=== PATIENT | male | born 2005 | race Caucasian/White ===

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

== ENCOUNTER 2024-10-18 10:50 | Outpatient (REF) | payer OTHER, SELFPAY ==
--- NOTE | ~2024-10-18 | XR_ITS ---
EXAMINATION: XR HAND 3 OR MORE VIEWS RIGHT HISTORY: M79.641 - Pain in right hand COMPARISON: There are no prior studies available for comparison. FINDINGS: Three views of the right hand are submitted. Osseous mineralization is normal. There is no fracture or dislocation. The joint spaces are preserved. The soft tissues are unremarkable. XR/XR hand RT min 3V IMPRESSION: Unremarkable examination of the right hand. Electronically signed by: Sam Weaver MD 10/18/2024 01:57 PM EDT
--- OUTSIDE RECORDS SUMMARY | 2024-10-19 13:02 | XMS_ITS | Encounter Summary ---
Author Organization [facility] Address [address] [place] [address] Phone Care Team Providers Care Coal Trammer Name Role Phone [place] Méndez MD Primary Care Provider [phone] Reason for Visit * Reason Comments Med Refill Encounter Details Date Type Department Care Team (Late st Contact Info) Description 11/28/2018 Refill [facility] - [address] [address] Kyle Mena MD Other acne Social History [...] acne documented in this encounter Care Teams Coal Trammer Relationship Specialty Start Date End Date [place] Méndez MD [address] [place] [address] [place]GEL[place] Vann [address] PCP - General Pediatrics 11/30/20 documented as of this encounter
--- OUTSIDE RECORDS SUMMARY | 2024-10-19 13:02 | XMS_ITS | Encounter Summary ---
Author Organization [facility] Address [address] [place] [address] Phone Care Team Providers Care Rug Scratcher Name Role Phone [place] Méndez MD Primary Care Provider [phone] Reason for Visit * Reason Comments Med Refill Encounter Details Date Type Department Care Team (Late st Contact Info) Description 01/05/2020 Refill [facility] [place] [address] [place] [address] Kyle Ocampo MD [address] [place] [address] Anxiety Social History Tobacco Use Types Packs/Day [...] unspecified documented in this encounter Care Teams Rug Scratcher Relationship Specialty Start Date End Date [place] Méndez MD [address] [place] [address] [place] Vann [address] PCP - General Pediatrics 11/30/20 documented as of this encounter
--- OUTSIDE RECORDS SUMMARY | 2024-10-19 13:02 | XMS_ITS | Encounter Summary ---
Author Organization [facility] Address [address] [place] [address] Phone Care Team Providers Care Sequins Stringer Name Role Phone [place] Méndez MD Primary Care Provider [phone] Encounter Details Date Type Department Care Team (Late st Contact Info) Description 12/04/2016 Documentation [facility] [place] Family Medicine [address] [place] [address] Family Medicine, Physician [address] [place] [place], [place] [address] Social History Tobacco Use Types Packs/Day Years [...] on filedocumented in this encounter Care Teams Sequins Stringer Relationship Specialty Start Date End Date [place] Méndez MD [address] [place] [address] [place] [address] PCP - General Pediatrics 11/30/20 documented as of this encounter
--- OUTSIDE RECORDS SUMMARY | 2024-10-19 13:02 | XMS_ITS | Clinical Summary ---
Author Organization [facility] Address [address] [place], [place] [phone] Phone Care Team Providers Care Care Connector Name Role Phone [place] Méndez MD Primary Care Provider [phone] Allergies No known active allergies Medications FLUoxetine [...] transferred to psychiatrist, Dr. Rolf Herrera in [place], as of 01/18/2021. Resolved Problems Problem Noted [...] Due Date Last Done Comments COVID-19 Vaccine (2023-2 5 season) 2024 2021, 01/09/2021 DTaP,Tdap,and Td [...] Completed 06/09/2024, 08/04/2022, 05/22/2022, Additional history exists Procedures * Due to [place] state law, this organization might not be sharing sensitive test results. Procedure Name Priority Date/Time Associated Diagnosis Comments AMB REFERRAL TO ORTHOPEDIC SURGERY Routine 10/18/2024 1:37 PM EDT Closed torus fracture of distal end of right radius, initial encounter from Last 3 Months Results * Due to [place] state law, this organization might not be sharing sensitive test results. * Ambulatory referral to Orthopedic Surgery (10/18/2024 1:37 PM EDT) Kyle Mena MD OUTPATIENT REFERRAL ORDERABLES F inal Result from Last 3 Months Insurance [facility] [place] [id number] Care Teams Care Connector Relationship Specialty Start Date End Date [place] Méndez MD [address] [place] [address] [place] Vann [address] PCP - General Pediatrics 11/30/20
--- OUTSIDE RECORDS SUMMARY | 2024-10-19 13:02 | XMS_ITS | Encounter Summary ---
Author Organization [facility] Address [address] [place] [address] Phone Care Team Providers Care Tamper Operator Name Role Phone [place] Méndez MD Primary Care Provider [phone] Encounter Details Date Type Department Care Team (Late st Contact Info) Description 01/04/2013 Documentation [facility] [place] [address] [place] [address] Family Medicine, Physician [address] [place], [place] [address] Social History Tobacco Use Types Packs/Day Years [...] on filedocumented in this encounter Care Teams Tamper Operator Relationship Specialty Start Date End Date [place] Méndez MD [address] [place] [address] [place] [address] PCP - General Pediatrics 11/30/20 documented as of this encounter
--- OUTSIDE RECORDS SUMMARY | 2024-10-19 13:02 | XMS_ITS | Encounter Summary ---
Author Organization [facility] Address [address] [place] [address] Phone Care Team Providers Care Parcel Post Order Clerk Name Role Phone [place] Méndez MD Primary Care Provider [phone] Reason for Visit * Reason Comments Med Refill Encounter Details Date Type Department Care Team (Late st Contact Info) Description 11/16/2019 Refill [facility] [place] [address] [place] [address] Kyle Pickard MD [address] [place] [address] Anxiety Social History Tobacco Use Types Packs/Day [...] unspecified documented in this encounter Care Teams Parcel Post Order Clerk Relationship Specialty Start Date End Date [place] Méndez MD [address] [place] [address] [place] Vann [address] PCP - General Pediatrics 11/30/20 documented as of this encounter
--- OUTSIDE RECORDS SUMMARY | 2024-10-19 13:02 | XMS_ITS | Encounter Summary ---
Author Organization [facility] Address [address] [place] [address] Phone Care Team Providers Care Cancer Center Director Name Role Phone [place] Méndez MD Primary Care Provider [phone] Encounter Details Date Type Department Care Team (Late st Contact Info) Description 12/30/2016 Documentation [facility] [place] [address] [place] [address] Family Medicine, Physician [address] [place], [place] [phone] Social History Tobacco Use Types Packs/Day Years [...] on filedocumented in this encounter Care Teams Cancer Center Director Relationship Specialty Start Date End Date Eagle Ménedz MD [address] [place] [address] [place] [address] PCP - General Pediatrics 11/30/20 documented as of this encounter
--- OUTSIDE RECORDS SUMMARY | 2024-10-19 13:02 | XMS_ITS | Encounter Summary ---
Author Organization [facility] Address [address] [place], [place] [phone] Phone Care Team Providers Care Suspension Cord Tier Name Role Phone [place] Méndez MD Primary Care Provider [phone] Encounter Details Date Type Department Care Team (Late st Contact Info) Description 03/05/2017 Conversion Encounter [facility] [place] [address] [place] [address] Social History Tobacco Use Types Packs/Day Years [...] on filedocumented in this encounter Care Teams Suspension Cord Tier Relationship Specialty Start Date End Date [place] Méndez MD [address] [place] [address] PCP - General Pediatrics 11/30/20 documented as of this encounter
--- OUTSIDE RECORDS SUMMARY | 2024-10-19 13:02 | XMS_ITS | Encounter Summary ---
Author Organization [facility] Address [address] [place] [address] Phone Care Team Providers Care Workforce Development Vice President Name Role Phone [place] Méndez MD Primary Care Provider [phone] Reason for Visit * Reason Comments Med Refill Encounter Details Date Type Department Care Team (Late st Contact Info) Description 03/01/2019 Refill [facility] - [address] [address] Kyle Mena MD Other acne Social History [...] acne documented in this encounter Care Teams Workforce Development Vice President Relationship Specialty Start Date End Date [place] Méndez MD [address] [facility] [place]ann [address] PCP - General Pediatrics 11/30/20 documented as of this encounter
--- OUTSIDE RECORDS SUMMARY | 2024-10-19 13:02 | XMS_ITS | Encounter Summary ---
Author Organization [facility] Address [address] [place] [address] Phone Care Team Providers Care Junior Account Manager Name Role Phone [place] Méndez MD Primary Care Provider [phone] Encounter Details Date Type Department Care Team (Late st Contact Info) Description 02/04/2016 Documentation [facility] [place] Family Medicine [address] [place] [address] Family Medicine, Physician [address] [place], [place] [address] Social History Tobacco Use Types Packs/Day Years [...] on filedocumented in this encounter Care Teams Junior Account Manager Relationship Specialty Start Date End Date [place] Méndez MD [address] [place] [address] [place] [address] PCP - General Pediatrics 11/30/20 documented as of this encounter
--- OUTSIDE RECORDS SUMMARY | 2024-10-19 13:02 | XMS_ITS | Encounter Summary ---
Author Organization [facility] Address [address] [place] [address] Phone Care Team Providers Care Enlisted Advisor Name Role Phone [place] Méndez MD Primary Care Provider Encounter Details Date Type Department Care Team (Late st Contact Info) Description 12/07/2009 Documentation [facility] [place] Family Medicine [address] [place] [address] Family Medicine, Physician [address] [place], [place] [id number] Social History Tobacco Use Types Packs/Day Years [...] on filedocumented in this encounter Care Teams Enlisted Advisor Relationship Specialty Start Date End Date [place] Méndez MD [address] [place] [address] [place] [address] PCP - General Pediatrics 11/30/20 documented as of this encounter
== END 2024-10-18 10:51 | disposition home or self-care (01) ==
LOC: HO.HOSX 10:50
PROVIDERS: Visit Provider Orthopaedic Surgery
DX: M79.641 Pain in right hand (principal); M65.4 Radial styloid tenosynovitis [de Quervain]
CPT/HCPCS: 20550; 73130; J1100; J2003

== ENCOUNTER → 2024-10-18 11:00 | Outpatient (BNV) | payer OTHER, SELFPAY | PROVIDERS: Visit Provider Radiology Diagnostic Radiology | DX: M79.641 Pain in right hand (principal) | CPT/HCPCS: 73130 ==

== ENCOUNTER 2024-10-18 11:04 | Outpatient (AMB) | payer OTHER, SELFPAY ==
--- NOTE | 2024-10-18 11:22 | A.OFFVIS_ITS ---
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 States pain started in May. No injury he can recall. Pain is at base of his basal joint. Pain with heavy lifting, hold his coffee cup and typing. He has stiffness in thumb, clicking as well. Denies numbness or tingling. States he has tried O.T and wore a brace for about 4 months with no improvement. Allergies No Known Allergies Allergy (Verified 10/18/24 11:28) HPI HPI VOCATIONAL GUIDANCE COUNSELOR-RT thumb pain: Details: Mulugeta is a 19 year old right hand dominant man who complaints of right thumb pain. He complains of pain in his right thumb for ~5 months now. The pain is localized at the base of his thumb & radial wrist. Pain worse with pinching, gripping, or heavy lifting activities. He denies any numbness or tingling He says he found limited relief from OT and wearing a brace. FORMERLY [facility], 1928[facility]1983 Medical History (Updated 10/18/24 @ 11:31 by Santiago Gutierrez) Patient denies significant medical history Surgical History (Updated 10/18/24 @ 11:28 by FARRAH Morillo) History of surgery on arm Social History (Updated 10/18/24 @ 11:29 by FARRAH Morillo) Alcohol intake: never Current occupation: rt hand/ [employer] Review of Systems Const All systems reviewed & are unremarkable except as noted in HPI and below Physical Exam Vital Signs: BMI result Body Mass Index 24.4 Const General: cooperative, healthy appearing and no acute distress Orientation/consciousness: patient oriented x3 HEENT Head: Yes normocephalic and Yes atraumatic Eyes EOM: EOMs intact bilaterally Resp Effort & Inspection: normal respiratory effort and able to speak in complete sentences Cardio Jugular venous distension: no JVD Skin General skin exam: turgor normal Rashes: no rashes Neuro General: patient oriented x3 Extrem Other: Evaluation of Upper Extremity: The patient is alert, oriented, and in no acute distress Neuro: Median, Ulnar, Radial nerves motor and sensory intact and sensation is normal to the tips of all digits Vascular: Cap refill brisk ROM: He can make a fist and extend all his digits No locking or catching Skin: No lacerations or abrasions. General: No Ecchymosis. No Erythema or evidence of infection. Most tender over the 1st dorsal compartment Pos Aisha test on the right No tenderness over the basal joint or MCP joint Radiographs: 3 views of the right hand were taken and viewed by me today in clinic. They show no fractures or dislocations Psych Appearance: grossly normal Affect: normal affect Attitude: cooperative Office Procedures AMB Fracture Care Details: No fracture, injection Fracture Billing Code: Fracture Billing Code Assessment & Plan Assessment & Plan (1) De Quervain's tenosynovitis, right: Code(s): M65.4 - Radial styloid tenosynovitis [de Quervain] Category: Medical Plan Assessment & Plan: 1. Right De Quervain's tenosynovitis Positive Aisha test I educated him about this condition I discussed operative and non-operative treatment options The patient would like to proceed with an injection I discussed activity modification, they should limit or avoid any heavy or repetitive pinching or gripping activities He was fitted for a comfort cool brace to wear with daily activity Injection #1: The risks and benefits of a steroid injection including but not limited to risk of damage to blood vessels, nerves, tendons, infection, skin bleaching, failure to improve symptoms, increased pain, and possible need for further injections or other intervention were discussed with the patient and the patient wishes to proceed with the steroid injection. Once consent was obtained, I sterilely prepped the area over the 1st dorsal compartment of the Right thumb. I then injected the 1st dorsal compartment with a combination of 1 mL of dexamethasone (4mg/ml), and 1% lidocaine. The patient tolerated the procedure well with no complications and good resolution of their symptoms prior to leaving clinic. If the patient continues to have pain 6-8 weeks following this injection, they may call to schedule appointment to discuss alternative treatment options He will follow up prn Scribed for Yoselyn Glynn MD by Santiago Gutierrez, medical office assistant instructor, on 10/18/24 at 11:30 AM, EST. Orders: Orders XR hand RT min 3V Today M79.641 - Pain in right hand Coding Level of Care Code New Pt Level 4 (70186) Diagnoses De Quervain's tenosynovitis, right M65.4 CPT Codes Fracture Care - Fracture Billing Code: Fracture Billing Code ([id number])
[2024-10-18 11:29] VITALS: BMI 24.4
--- OUTSIDE RECORDS SUMMARY | 2024-10-18 13:22 | XMS_ITS | Encounter Summary ---
Author Organization [facility] Address [address] [place] [id number] Phone Care Team Providers Care Eligibility Manager Name Role Phone Eagle Méndez MD Primary Care Provider [phone] Encounter Details Date Type Department Care Team (Late st Contact Info) Description 12/07/2009 Documentation [facility] [place] [address] [place] [address] Family Medicine, Physician [address] [place], [place] [id number] Social History Tobacco Use Types Packs/Day Years Used Date Smoking Tobacco: Never Assessed Sex and Gender Information Value Date Recorded Sex Assigned at Male 09/27/2020 10:39 AM EST Legal Sex Male 5:09 PM EDT Gender Identity Male 09/27/2020 10:39 AM EST Sexual Orientation Straight 09/27/2020 10 :39 AM EST documented as of this encounter Plan of Treatment Not on file documented as of this encounter Visit Diagnoses Not on filedocumented in this encounter Care Teams Eligibility Manager Relationship Specialty Start Date End Date Eagle Méndez MD [address] [place] [address] [place] [address] PCP - General Pediatrics 11/30/20 documented as of this encounter
--- OUTSIDE RECORDS SUMMARY | 2024-10-18 13:22 | XMS_ITS | Encounter Summary ---
Author Organization [facility] Address [address] [place] [address] Phone Care Team Providers Care Education Research Analyst Name Role Phone Eagle Méndez MD Primary Care Provider [phone] Reason for Visit * Reason Comments Med Refill Encounter Details Date Type Department Care Team (Late st Contact Info) Description 11/28/2018 Refill [facility] - [address] [address] Kyle Mena MD Other acne Social History Tobacco Use Types Packs/Day Years Used Date Smoking Tobacco: Never Comments:Never smoker Hunger/Food Answer Date Recorded No 08/04/2018 Stable Housing Answer Date Recorded 0 08/04/2018 Transportation Concerns Answer Date Rec orded No 08/04/2018 Hazards in Home Answer Date Recorded No 08/04/2018 Financing Utilities Answer Date Recorde d No 08/04/2018 Safety at Home Answer Date Recorded No 08/04/2018 Outside Support Answer Date Recorded No 08/04/2018 Understanding Health Concerns Answer Da te Recorded No 08/04/2018 Financing Health Concerns Answer Date R ecorded No 08/04/2018 Missing School or Work Answer Date Oscar rded No 08/04/2018 Sex and Gender Information Value Date Recorded Sex Assigned at Male 09/27/2020 10:39 AM EST Legal Sex Male 5:09 PM EDT Gender Identity Male 09/27/2020 10:39 AM EST Sexual Orientation Straight 09/27/2020 10 :39 AM EST documented as of this encounter Miscellaneous Notes * Telephone Encounter - Kyle Mena MD - 12/02/2018 9:03 PM EDT Per mom pt has been on this only for 1.5 mos She also says hs is on 50 mg bid PLan Will refill Pt will be carful of sun * Telephone Encounter - Parvin Andrea LPN - 11/29/2018 10:21 AM EDT Pharm fax refill request minocyline. This was started 07/28, was to have f/u in 3 mos. Spoke with mom who said she did ask for this, that she feels pt's acne improved while using, that he could be more compliant using daily but do find it is helpful. EH documented in this encounter Plan of Treatment Not on file documented as of this encounter Visit Diagnoses Diagnosis Other acne documented in this encounter Care Teams Education Research Analyst Relationship Specialty Start Date End Date Eagle Méndez MD [address] [place] [address] [place]ann [address] PCP - General Pediatrics 11/30/20 documented as of this encounter
--- OUTSIDE RECORDS SUMMARY | 2024-10-18 13:22 | XMS_ITS | Encounter Summary ---
Author Organization [facility] Address [address] [place] [address] Phone Care Team Providers Care Brewmaster Name Role Phone Eagle Méndez MD Primary Care Provider [phone] Encounter Details Date Type Department Care Team (Late st Contact Info) Description 12/04/2016 [place]ation [facility] [place] [address] [place] [address] Family Medicine, Physician [address] [place], [place] [address] Social History Tobacco Use Types Packs/Day Years Used Date Smoking Tobacco: Never Comments:Never smoker Sex and Gender Information Value Date Recorded Sex Assigned at Male 09/27/2020 10:39 AM EST Legal Sex Male 5:09 PM EDT Gender Identity Male 09/27/2020 10:39 AM EST Sexual Orientation Straight 09/27/2020 10 :39 AM EST documented as of this encounter Plan of Treatment Not on file documented as of this encounter Visit Diagnoses Not on filedocumented in this encounter Care Teams Brewmaster Relationship Specialty Start Date End Date Eagle Méndez MD [address] [place] [address] [place] [address] PCP - General Pediatrics 11/30/20 documented as of this encounter
--- OUTSIDE RECORDS SUMMARY | 2024-10-18 13:22 | XMS_ITS | Encounter Summary ---
Author Organization [facility] Address [address] [place] [address] Phone Care Team Providers Care Heavy Equipment Service Technician Name Role Phone Eagle Méndez MD Primary Care Provider [phone] Reason for Visit * Reason Comments Med Refill Encounter Details Date Type Department Care Team (Late st Contact Info) Description 11/16/2019 Refill [facility] [place] [address] [place] [address] Kyle Pickard MD [address] [place] [address] Anxiety Social History Tobacco Use Types Packs/Day Years Used Date Smoking Tobacco: Never Comments:Never smoker Hunger/Food Answer Date Recorded In the last 12 months, did y ou or your family ever eat less than you felt you should because there wasn't enough money for food? No 09/08/2019 Stable Housing Answer Date Recorded Are you worried that in the next 2 months you may not have stable housing? No 09/08/2019 Transportation Concerns Answer Date Rec orded In the last 12 months, have you or your family ever had to go without healthcare because you didn't have a way to get there? No 09/08/2019 Hazards in Home Answer Date Recorded Think about the place you li ve. Do you have problems with any of the following? Pests (mice or roaches), mold, no/not working smoke detectors, water leaks, no window guards. No 2019 Financing Utilities Answer Date Recorde d In the last 12 months, has t he electric, gas, oil, or water company threatened to shut off your services in your home? No 09/08/2019 Safety at Home Answer Date Recorded Are you or your family worried about feeling saf e in your home? No 09/08/2019 Outside Support Answer Date Recorded Do you feel that you need mo re support from other people or programs to help you care for yourself or your family? No 09/08/2019 Understanding Health Concerns Answer Da te Recorded Do you need help understandi ng your or your child's healthcare needs (diagnosis, medications, plan, etc.)? No 09/08/2019 Financing Health Concerns Answer Date R ecorded In the last 12 months, was t here a time when your child needed to see a doctor or get medications or supplies but could not because of cost? No 09/08/2019 Missing School or Work Answer Date Oscar rded Did you or your child miss s chool or work because of a health problem that could have been avoided? No 09/08/2019 Sex and Gender Information Value Date Recorded Sex Assigned at Male 09/27/2020 10:39 AM EST Legal Sex Male 5:09 PM EDT Gender Identity Male 09/27/2020 10:39 AM EST Sexual Orientation Straight 09/27/2020 10 :39 AM EST documented as of this encounter Miscellaneous Notes * Telephone Encounter - Kyle Mena MD - 11/17/2019 11:17 AM EDT Per mom today, pt does not, yet, need refill. * Telephone Encounter - Urvashi Ellis LPN - 11/16/2019 9:37 AM EDT Needs refill on Fluoxetine 10 mgs. Last pe 09/08 Last med ck 09/2019 Med ck pending tomorrow documented in this encounter Plan of Treatment Not on file documented as of this encounter Visit Diagnoses Diagnosis Anxiety Anxiety state, unspecified documented in this encounter Care Teams Heavy Equipment Service Technician Relationship Specialty Start Date End Date Eagle Méndez MD [address] [place] [address] [place] [address] PCP - General Pediatrics 11/30/20 documented as of this encounter
--- OUTSIDE RECORDS SUMMARY | 2024-10-18 13:22 | XMS_ITS | Encounter Summary ---
Author Organization [facility] Address [address] [place] [address] Phone Care Team Providers Care Red Cap Name Role Phone Eagle Méndez MD Primary Care Provider [phone] Encounter Details Date Type Department Care Team (Late st Contact Info) Description 02/04/2016 Documentation [facility] [place] Family Medicine [address] [place] [address] Family Medicine, Physician [address] [place], [place] [address] Social History Tobacco Use Types Packs/Day Years [...] on filedocumented in this encounter Care Teams Red Cap Relationship Specialty Start Date End Date Eagle Méndez MD [address] [place] [address] [place] [address] PCP - General Pediatrics 11/30/20 documented as of this encounter
--- OUTSIDE RECORDS SUMMARY | 2024-10-18 13:22 | XMS_ITS | Encounter Summary ---
Author Organization [facility] Address [address] [place] [address] Phone Care Team Providers Care Coach Wirer Name Role Phone Eagle Méndez MD Primary Care Provider [phone] Reason for Visit * Reason Comments Med Refill Encounter Details Date Type Department Care Team (Late st Contact Info) Description 03/01/2019 Refill [facility] - [address] [address] Kyle Mena MD Other acne Social History [...] Telephone Encounter - Kyle Mena MD - 03/03/2019 1:03 PM EDT Spoke to pt's brother and father (here for brother's PE) They feel pt does not need refill * Telephone Encounter - Brittany Avila LPN - 03/01/2019 7:38 AM EDT Refill request for /minocycline. Last PE 07/01/18/JOD documented in this encounter Plan of Treatment Not on file documented as of this encounter Visit Diagnoses Diagnosis Other acne documented in this encounter Care Teams Coach Wirer Relationship Specialty Start Date End Date Eagle Méndez MD [address] [facility] [place] [address] PCP - General Pediatrics 11/30/20 documented as of this encounter
--- OUTSIDE RECORDS SUMMARY | 2024-10-18 13:22 | XMS_ITS | Encounter Summary ---
Author Organization [facility] Address [address] [place] [address] Phone Care Team Providers Care Lap Runner Name Role Phone [place] Méndez MD Primary Care Provider [phone] Reason for Visit * Reason Comments Med Refill Encounter Details Date Type Department Care Team (Late st Contact Info) Description 01/05/2020 Refill [facility] [place] [address] [place] [address] Kyle Ocampo MD [address] [place] [address] Anxiety Social History Tobacco Use Types Packs/Day [...] encounter Miscellaneous Notes * Telephone Encounter - Brittany Avila LPN - 01/05/2020 7:56 AM EDT Refill request for fluoxetine refused, just sent on 12/20/19 documented in this encounter Plan of Treatment Not on file documented as of this encounter Visit Diagnoses Diagnosis Anxiety Anxiety state, unspecified documented in this encounter Care Teams Lap Runner Relationship Specialty Start Date End Date Eagle Méndez MD [address] [place] [address] [place]GEL[place] Vann [address] PCP - General Pediatrics 11/30/20 documented as of this encounter
--- OUTSIDE RECORDS SUMMARY | 2024-10-18 13:22 | XMS_ITS | Clinical Summary ---
Author Organization [facility] Address [address] [place], [place] [id number] Phone Care Team Providers Care Cyber Threat Analyst Name Role Phone [place] Méndez MD Primary Care Provider [phone] Allergies No known active allergies Medications FLUoxetine 10 MG capsule Take by mouth once daily. 4 Active triamcinolone 0.1 % creamIndication s:Dermatitis Apply topically 2 (two) times a day as needed for rash (Up to 14 days in a row). 45 g 1 4 Active Active Problems Problem Noted Date Diagnosed Date Attention deficit hyperactiv ity disorder (ADHD), predominantly inattentive type 05/22/2022 History of COVID-19 01/07/2021 Overview (01/07/2021): Positive for COVID-19 in 07/2020 with only mild symptoms at the time. AHA screening negative. Sports clearance performed on 12/21/20. Anxiety 11/17/2019 Overview (01/18/2021): Patient treated through this office with fluoxetine from 08/2019 - 12/2020. Management of Rx treatment transferred to psychiatrist, Dr. Rolf Herrera in [place], as of 01/18/2021. Resolved Problems Problem Noted Date Diagnosed Date Resolved Date Acne vulgaris 09/08/2019 09/27/2020 History of ADHD 04/19/2015 09/08/2019 Immunizations Immunization Administration Dates Next Due DTaP / Hep B / IPV 2004,2004, 004 DTaP 5 04/11/2008,07/29/2005 HPV Vaccine 9 Valent 11/10/2016,05/07/2016 Hep A, ped/adol 04/19/2015,04/17/2014 Hep B, ped/adol 2004 Hib (HbOC) 04/29/2005, 5,2004,04/17 IPV 04/11/2008 Influenza, injectable, quadr ivalent, preservative free 06/04/2023,05/22/2022,06/12/2020,05/04,07/01/2018,05/14/2017,05/07/2016 ,04/19/2015 Influenza, injectable, trivalent 03/23/2009,05/21,2004 Influenza, injectable, triva lent, preservative free 06/09/2024 Influenza, intranasal, quadrivalent 04/17/2014,1 MMR 04/11/2008,02/18/2005 Meningococcal B Trumenba 06/04/2023,05/22/2022 Meningococcal Conj (Menactra) MCV4P 09/27/2020,1 Pneumococcal Conjugate 04/29/2005,2004,2004,04/17 Tdap 04/19/2015 Varicella 04/11/2008,02/18/2005 Family History Medical History Relation Name Comments Heart disease (Premature) Maternal Grandmother Hyperlipidemia Maternal Grandmother Hyperlipidemia Mother Althea Joy Cancer (Childhood Onset) Paternal Grandmother Alcoholism Neg Hx Relation Name Status Comments Brother Alive Brother: Alive and well Father Mulugeta Joy Alive Father: A live and well Maternal Grandfather Materna l grandfather: Cancer -renal Maternal Grandmother Materna l grandmother: mitral and aortic stenosis for, Hyperlipidemia Mother Althea Joy Alive Mother: Ali ve and well Paternal Grandfather Paterna l uncle: Alcoholism Paternal Grandmother Paterna l grandmother: Thyroid disease Sister Alive Sister: Alive a nd well Social History Tobacco Use Types Packs/Day Years Used Date Smoking Tobacco: Never Comments:Never smoker Alcohol Use Standard Drinks/Week Comments Never 0 (1 standard drink = 0.6 oz pur e alcohol) Hunger/Food Answer Date Recorded In the last 12 months, did y ou or your family ever eat less than you felt you should because there wasn't enough money for food? No 06/09/2024 Stable Housing Answer Date Recorded Are you worried that in the next 2 months you may not have stable housing? No 06/09/2024 Transportation Concerns Answer Date Rec orded In the last 12 months, have you or your family ever had to go without healthcare because you didn't have a way to get there? No 06/09/2024 Hazards in Home Answer Date Recorded Think about the place you li ve. Do you have problems with any of the following? Pests (mice or roaches), mold, no/not working smoke detectors, water leaks, no window guards. No 2023 Financing Utilities Answer Date Recorde d In the last 12 months, has t he electric, gas, oil, or water company threatened to shut off your services in your home? No 06/09/2024 Safety at Home Answer Date Recorded Are you or your family worried about feeling saf e in your home? No 06/09/2024 Outside Support Answer Date Recorded Do you feel that you need mo re support from other people or programs to help you care for yourself or your family? No 06/09/2024 Understanding Health Concerns Answer Da te Recorded Do you need help understandi ng your or your child's healthcare needs (diagnosis, medications, plan, etc.)? No 06/09/2024 Financing Health Concerns Answer Date R ecorded In the last 12 months, was t here a time when your child needed to see a doctor or get medications or supplies but could not because of cost? No 06/09/2024 Missing School or Work Answer Date Oscar rded Did you or your child miss s chool or work because of a health problem that could have been avoided? No 06/09/2024 Child Education Answer Date Recorded Do you have concerns about y our/your child's learning or behavior in school, preschool, or daycare? No 06/09/2024 Sex and Gender Information Value Date Recorded Sex Assigned at Male 09/27/2020 10:39 AM EST Legal Sex Male 5:09 PM EDT Gender Identity Male 09/27/2020 10:39 AM EST Sexual Orientation Straight 09/27/2020 10 :39 AM EST Last Filed Vital Signs Vital Sign Reading Time Taken Comments Blood Pressure 125/65 06/09/2024 2:50 PM EST Pulse 67 06/09/2024 2:50 PM EST Temperature 36.2 ??C (97.1 ??F) 06/04/2023 3:48 PM ES T Respiratory Rate - - Oxygen Saturation - - Inhaled Oxygen Concentration - - Weight 75.1 kg (165 lb 9.6 oz) 06/09/2024 2:50 P M EST Height 175.3 cm (5' 9 ) 06/09/2024 2:50 PM EST Body Mass Index 24.45 06/09/2024 2:50 PM EST Plan of Treatment Health Maintenance Due Date Last Done Comments COVID-19 Vaccine (2023-08 5 season) 2024 2021, 01/09/2021 DTaP,Tdap,and Td Vaccines (7 - Td or Tdap) 04/19/2025 04/19/2015, 04/11/2008, 07/29/2005, Additional history exists Hepatitis B Vaccines Completed 2004, 2004, 2004, Additional history exists HIB Vaccines Completed 04/29/2005, 07/20, 2004, Additional history exists Pneumococcal Vaccine Completed 04/29/2005, 2004, 2004, Additional history exists IPV Vaccines Completed 04/11/2008, 07/20, 2004, Additional history exists MMR Vaccines Completed 04/11/2008, 02/18/2005 Varicella Vaccines Completed 04/11/2008, 02/18/2005 Hepatitis A Vaccines Completed 04/19/2015, 04/17/20 14 HPV Vaccines Completed 11/10/2016, 05/07/2016 Meningococcal Vaccine Completed 09/27/2020, 015 Men B Vaccine Completed 06/04/2023, 05/22/2022 Influenza Vaccines Completed 06/09/2024, 08/04/2022, 05/22/2022, [place] [id number] Care Teams Cyber Threat Analyst Relationship Specialty Start Date End Date [place] Méndez MD [address] [place] [address] [place]GEL[place] Vann [address] PCP - General Pediatrics 11/30/20
--- OUTSIDE RECORDS SUMMARY | 2024-10-18 13:22 | XMS_ITS | Encounter Summary ---
Author Organization [facility] Address [address] [place] [address] Phone Care Team Providers Care Hammer Runner Name Role Phone [place] Méndez MD Primary Care Provider [phone] Encounter Details Date Type Department Care Team (Late st Contact Info) Description 01/04/2013 Documentation [facility] [place] [address] [place] [address] Family Medicine, Physician [address] [place], [place] [address] Social History Tobacco Use Types Packs/Day Years [...] on filedocumented in this encounter Care Teams Hammer Runner Relationship Specialty Start Date End Date [place] Méndez MD [address] [place] [address] [place] [address] PCP - General Pediatrics 11/30/20 documented as of this encounter
--- OUTSIDE RECORDS SUMMARY | 2024-10-18 13:22 | XMS_ITS | Encounter Summary ---
Author Organization [facility] Address [address] [place], [place] [id number] Phone Care Team Providers Care Animal Trainer Supervisor Name Role Phone [place] Méndez MD Primary Care Provider [phone] Encounter Details Date Type Department Care Team (Late st Contact Info) Description 03/05/2017 Conversion Encounter [facility] [place] [address] [place] [address] Social History Tobacco Use Types Packs/Day Years [...] on filedocumented in this encounter Care Teams Animal Trainer Supervisor Relationship Specialty Start Date End Date [place] Méndez MD [address] [place] [address] PCP - General Pediatrics 11/30/20 documented as of this encounter
--- OUTSIDE RECORDS SUMMARY | 2024-10-18 13:22 | XMS_ITS | Encounter Summary ---
Author Organization [facility] Address [address] [place] [address] Phone Care Team Providers Care Tannery Worker Name Role Phone [place] Méndez MD Primary Care Provider [phone] Encounter Details Date Type Department Care Team (Late st Contact Info) Description 12/30/2016 Documentation [facility] [place] Family Medicine [address] [place] [address] Family Medicine, Physician [address] [place], [place] [id number] Social History Tobacco Use Types Packs/Day Years [...] on filedocumented in this encounter Care Teams Tannery Worker Relationship Specialty Start Date End Date [place] Méndez MD [address] [place] [address] [place] [address] PCP - General Pediatrics 11/30/20 documented as of this encounter
== END 2024-10-18 11:41 | disposition home or self-care (01) ==
LOC: HO.HOS 11:05
PROVIDERS: PCP Pediatrics; Visit Provider Orthopaedic Surgery
DX: M65.4 Radial styloid tenosynovitis [de Quervain] (principal)
CPT/HCPCS: 20550; 99203

== ENCOUNTER 2024-12-13 14:26 | Outpatient (AMB) | payer OTHER, SELFPAY ==
--- OUTSIDE RECORDS SUMMARY | 2024-12-13 14:29 | XMS_ITS | Clinical Summary ---
Author Organization [facility] Address [address] [place], [place] [phone] Phone Care Team Providers Care Imaging Account Manager Name Role Phone [place] Méndez MD Primary Care Provider [phone] Allergies No known active allergies Medications FLUoxetine [...] transferred to psychiatrist, Dr. Rolf Herrera in [place], as of 01/18/2021. Resolved Problems Problem Noted [...] Additional history exists Procedures * Due to [place] state law, this organization might not be sharing sensitive test results. Procedure Name Priority Date/Time Associated Diagnosis Comments AMB REFERRAL TO ORTHOPEDIC SURGERY Routine 10/18/2024 1:37 PM EDT Closed torus fracture of distal end of right radius, initial encounter from Last 3 Months Results * Due to [place] state law, this organization might not be sharing sensitive test results. * Ambulatory referral to Orthopedic Surgery (10/18/2024 1:37 PM EDT) Kyle Mena MD OUTPATIENT REFERRAL ORDERABLES F inal Result from Last 3 Months Insurance [facility] [place] [id number] Care Teams Imaging Account Manager Relationship Specialty Start Date End Date [place] Méndez MD [address] [place] [address] [place] Vann [address] PCP - General Pediatrics 11/30/20
--- NOTE | 2024-12-13 15:15 | MHC.OFFVIS ---
Vital Signs 12/13/24 15:16 Height 5 ft 9 in Weight 165 lb BMI 24.4 Intake Visit Reasons: OV-RT thumb pain f/u Intake Note: Mulugeta 19 yr old right hand dominant male presents today for his follow up visit for his right hand dequervain s/p injection 10/18/[address] Glynn. States injection did not help and would like to discuss alternative treatment options. Allergies No Known Allergies Allergy (Verified 12/13/24 15:17) HPI HPI OV-RT thumb pain f/u: Details: The patient is a 19-year-old young man who works as a voice data communications engineer at [employer]. He was last seen by me on 10/18/2024 and found to have right de Quervain tenosynovitis. He was given a steroid injection but feels like it really has not improved very much. [facility] Medical History (Updated 10/18/24 @ 11:31 by Santiago Gutierrez) Patient denies significant medical history Surgical History (Updated 10/18/24 @ 11:28 by FARRAH Morillo) History of surgery on arm Social History (Updated 10/18/24 @ 11:29 by FARRAH Morillo) Alcohol intake: never Current occupation: rt hand/ [employer] Physical Exam Vital Signs: BMI result Body Mass Index 24.4 Extrem Other: The patient was alert oriented and in no acute distress Sensation is grossly intact to all digits and cap refill is brisk He is cutting machine tender decorative over the right 1st dorsal compartment. He has a positive Aisha test over the right wrist No erythema no overlying skin changes He can make a fist and extend all of his digits Radiographs: Three views of the right hand from 10/18/2024 were reviewed by me today in clinic. They show no fractures or dislocations. They show no appreciable degenerative changes. Assessment & Plan Assessment & Plan (1) De Quervain's tenosynovitis, right: Code(s): M65.4 - Radial styloid tenosynovitis [de Quervain] Category: Medical Plan Assessment and plan: 1. Right de Quervain tenosynovitis Status post injection on 10/18/2024 without significant improvement I educated him about this condition We discussed operative and non operative treatment options I am recommending surgery and he would like to proceed with surgery The risks and benefits of operative treatment were discussed with the patient and the patient wishes to proceed with surgery. These risks include, but are not limited to risk of damage to blood vessels, nerves, tendons, infection, recurrence, incomplete relief of preoperative symptoms, persistent pain, possible need for further surgery and the risks associated with regional blocks and anesthesia. The plan is to take the patient to the operating room sometime in the next few weeks for the following procedures: 1. Right 1st dorsal compartment release 2. [ ] All of the preoperative paperwork including the consent was filled out today. All the patient's questions were answered. The patient understands that they will be contacted by our veterinary surgery technician soon to schedule this procedure He denies having diabetes or being on blood thinners Coding Level of Care Code Est Pt Level 4 (79642) Diagnoses De Quervain's tenosynovitis, right M65.4
[2024-12-13 15:16] VITALS: BMI 24.4
== END 2024-12-13 15:30 | disposition home or self-care (01) ==
LOC: HO.HOS 14:27
PROVIDERS: Visit Provider Orthopaedic Surgery
DX: M65.4 Radial styloid tenosynovitis [de Quervain] (principal)
CPT/HCPCS: 99214

== ENCOUNTER → 2024-12-13 14:26 | Outpatient (BNVA) | payer OTHER, SELFPAY | PROVIDERS: Visit Provider Orthopaedic Surgery ==

== ENCOUNTER 2025-01-02 07:39 | Day surgery (SDC) | payer OTHER, SELFPAY ==
--- OUTSIDE RECORDS SUMMARY | 2024-12-20 16:55 | XMS_ITS | Clinical Summary ---
Author Organization [facility] Address [address] [place], [place] [id number] Phone Care Team Providers Care Cafe Attendant Name Role Phone Eagle Méndez MD Primary Care Provider [phone] Allergies No known active allergies Medications FLUoxetine [...] transferred to psychiatrist, Dr. Rolf Herrera in [place], as of 01/18/2021. Resolved Problems Problem Noted [...] Additional history exists Procedures * Due to [place] state law, this organization might not be sharing sensitive test results. Procedure Name Priority Date/Time Associated Diagnosis Comments AMB REFERRAL TO ORTHOPEDIC SURGERY Routine 10/18/2024 1:37 PM EDT Closed torus fracture of distal end of right radius, initial encounter from Last 3 Months Results * Due to [place] state law, this organization might not be sharing sensitive test results. * Ambulatory referral to Orthopedic Surgery (10/18/2024 1:37 PM EDT) Kyle Mena MD OUTPATIENT REFERRAL ORDERABLES F inal Result from Last 3 Months Insurance [facility] [place] [id number] Care Teams Cafe Attendant Relationship Specialty Start Date End Date Eagle Méndez MD [address] [place] [address] ANGELI Vann [address] PCP - General Pediatrics 11/30/20
[2025-01-02 08:25] VITALS: BP 114/58; PULSE 67; RESP 18; TEMP 36.7; O2SAT 99
[2025-01-02 08:26] VITALS: BMI 24.4
--- NOTE | 2025-01-02 09:42 | MHC.SHP ---
Pre-Procedural Eval Section A - 24 Hr Update-Section A only Date of Service: 01/02/25 The patient is an INPATIENT: No Changes since office visit: No Cold of Flu in the past 2 weeks, No New Medical Problems, No Changes in Medication and No Patient answered all questions The patient has been examined within 24 hours of the surgical procedure. The History & Physical has been completed within 30 days and I have reviewed it.: Yes Section B - Complete if H&P > 30 days Chief Complaint: Radial styloid tenosynovitis [de Quervain] Allergies: Allergies Allergy/AdvReac Type Severity Reaction Status Date / Time No Known Allergies Allergy Verified 01/02/25 08:02 Plan Diagnosis/Plan: Unchanged I have reviewed the history and physical and performed a pertinent physical examination on my patient. No changes have occurred unless specified. Time Spent With Patient Time: Total time managing care of this patient today ____ minutes.
--- NOTE | 2025-01-02 09:43 | W.PM.OPN ---
Operative Note Operative Note Date of Service: 01/02/25 Narrative: Operative Note Preop diagnosis: 1. Right DeQuervain's tenosynovitis Postop diagnosis: 1. Right DeQuervain's tenosynovitis Procedure: 1. Right 1st dorsal compartment release 2. Tenosynovectomy of the right abductor pollicis longus and extensor pollicis brevis tendons Surgeon: Yoselyn Glynn MD Grinding Machine Operator Automatic: None Anesthesia: local block using 1% lidocaine with epinephrine Findings: Thickened 1st dorsal compartment. Inflamed tenosynovium about both the APL and EPB tendons. EBL: Less than 5 mL Tourniquet time: None Specimens: None Complications: None Disposition: Brought to recovery room in stable condition Plan: Follow-up for 7-10 days for wound check and suture removal Indications: The patient is 19 years old, with right DeQuervain's tenosynovitis that has been unresponsive to nonoperative management. The risks and benefits of operative treatment including but not limited to risk of damage to blood vessels, nerves, tendons, infection, persistent pain, persistent symptoms, recurrence or possible need for additional surgery were discussed with the patient and the patient wishes to proceed with surgery. Procedure: Once consent was obtained a local block was performed in the preop area using a combination of 1% lidocaine with epinephrine. The patient was then brought back to the operating suite and placed on the operative table in supine position. The right upper extremity was prepped and draped in a standard surgical fashion. Once assured that we had a good block, a 1.5 cm longitudinal incision was made centered over the 1st dorsal compartment as it passed over the radial styloid of the right wrist. The incision was made through the skin to the subcutaneous tissues using a #15 blade. Careful dissection was made down to the level of the 1st dorsal compartment using tenotomy scissors, with care being taken to protect the nearby branches of the superficial radial nerve. Once the 1st dorsal compartment was exposed, A longitudinal incision was made in the 1st dorsal compartment 1st using a #15 blade, then using tenotomy scissors under direct visualization. The 1st dorsal compartment was noted to be thickened. The EPB tendon was noted to be in a separate compartment. This was also released longitudinally using a 15. Blade and iris scissors under direct visualization. Both the APL and EPB tendons were noted to have some inflamed tenosynovium about these tendons. A tenosynovectomy was performed excising the inflamed tenosynovium from about the APL tendon. This is removed and placed on the back table. A tenosynovectomy was then performed excising the inflamed tenosynovium from about the EPB tendon. This small amount of inflamed tenosynovium was again removed from the patient placed on the back table. Following our release and tenosynovectomy he has, we saw smooth gliding abductor pollicis longus and extensor pollicis brevis tendons. Once satisfied with our 1st dorsal compartment release the wound was copiously irrigated with normal saline and hemostasis was obtained with a brief period of local pressure. The subcutaneous layer was closed with some 4-0 Vicryl suture, and the skin edges were reapproximated with some 5.0 nylon suture material. A sterile dressing was applied. The patient appears to have tolerated the procedure well and with no complications. All digits were well vascularized at the conclusion of the case.
[2025-01-02 10:23] VITALS: BP 118/71; PULSE 67; RESP 18; O2SAT 99
== END 2025-01-02 10:38 | disposition home or self-care (01) ==
PROVIDERS: PCP Internal Medicine; Visit Provider Orthopaedic Surgery
PROC: (CPT 25000; principal; 2025-01-02 09:10)
DX: M65.4 Radial styloid tenosynovitis [de Quervain] (principal); M79.644 Pain in right finger(s); Z98.890 Other specified postprocedural states
CPT/HCPCS: 25000; J0171; J2003

== ENCOUNTER → 2025-01-02 07:39 | Outpatient (BNV) | payer OTHER, SELFPAY | PROVIDERS: PCP Internal Medicine; Visit Provider Orthopaedic Surgery | DX: M65.4 Radial styloid tenosynovitis [de Quervain] (principal) | CPT/HCPCS: 25000 ==

== ENCOUNTER 2025-01-17 15:15 | Outpatient (AMB) | payer OTHER, SELFPAY ==
[2025-01-17 15:22] VITALS: BMI 24.4
--- NOTE | 2025-01-17 15:22 | MHC.OFFVIS ---
Vital Signs 01/17/25 15:22 Height 5 ft 9 in Weight 165 lb BMI 24.4 Intake Visit Reasons: PO-Rt 1st DC Release 01/02/25 Intake Note: Mulugeta is a 19 year old right hand dominant man who presents today for a post operative visit status post right 1st dorsal compartment release and tenosynovectomy of the right abductor pollicis longus and extensor pollicis brevis tendons, DOS: 01/02/25, by Dr Yoselyn Glynn. States he as minor soreness but is doing well over all. Allergies No Known Allergies Allergy (Verified 01/17/25 15:22) HPI HPI PO-Rt 1st DC Release 01/02/25: Details: Mulugeta is a 19 year old right hand dominant man who presents today for a post operative visit status post right 1st dorsal compartment release and tenosynovectomy of the right abductor pollicis longus and extensor pollicis brevis tendons, DOS: 01/02/25, by Dr Yoselyn Glynn. States he as minor soreness but is doing well over all. [facility] Medical History Patient denies significant medical history Surgical History History of surgery on arm Social History Are you a primary restorative care technician to a significant other at home: No Do you presently have visiting nurse or other home services: No Alcohol intake: never Comment: counts correct Patient Tobacco Use Status: Never used Tobacco Current occupation: rt hand/ [employer] Review of Systems Const All systems reviewed & are unremarkable except as noted in HPI and below Physical Exam Vital Signs: BMI result Body Mass Index 24.4 Extrem Other: The patient was alert oriented and in no acute distress Sensation is grossly intact to all digits and cap refill is brisk Well approximated and well healing incision site noted over the 1st dorsal compartment of the right wrist No tenderness about the incision site No erythema no overlying skin changes He can make a fist and extend all of his digits Assessment & Plan Assessment & Plan (1) De Quervain's tenosynovitis, right: Code(s): M65.4 - Radial styloid tenosynovitis [de Quervain] Category: Medical Plan 1. Status post 1st dorsal compartment release DOS 01/02/2025 Patient appears to be recovering well postoperatively Patient is educated about the typical recovery course OT referral placed for range of motion and strengthening of the right wrist in the setting of de Quervain tenosynovitis status post 1st dorsal compartment release Patient is amenable to this plan Patient is educated that he should continue wearing his comfort cool thumb spica splint when his wrist is bothering him or when he is going to be participating in significant activity Patient is amenable to this plan Follow-up in 4-6 weeks for reassessment, sooner with any acute concerns Orders: Orders OT Evaluation and Treatment 01/17/25 M65.4 - Radial styloid tenosynovitis [de Quervain] Coding Level of Care Code Global (42536) Diagnoses De Quervain's tenosynovitis, right M65.4
--- OUTSIDE RECORDS SUMMARY | 2025-01-17 16:04 | XMS_ITS | Clinical Summary ---
Author Organization [facility] Address [address] [place] [address] Phone Care Team Providers Care Pc Technician Name Role Phone Eagle Méndez MD Primary Care Provider [phone] Allergies No known active allergies Medications FLUoxetine 10 MG capsule Take by mouth once daily. 04/14/20 24 Active triamcinolone 0.1 % creamIndicatio ns:Dermatitis APPLY TO RASH TWICE A DAY NEEDED FOR UP TO 14 DAYS 30 g 1 01/11/20 25 Active triamcinolone 0.1 % creamIndicatio ns:Dermatitis Apply topically 2 (two) times a day as needed for rash (Up to 14 days in a row). 45 g 1 06/09/20 24 025 Discontinued Active Problems Problem Noted Date Diagnosed Date [...] transferred to psychiatrist, Dr. Rolf Herrera in [place], as of 01/18/2021. Resolved Problems Problem Noted Date Diagnosed Date Resolved Date Acne vulgaris 09/08/2019 09/27/2020 History of ADHD 04/19/2015 09/08/2019 Encounters Date Type Department Care Team Description 01/09/2025 Refill [facility] - [address] [address] Fish García MD Dermatitis from Last 3 Months Immunizations Immunization Administration Dates Next Due DTaP [...] for, Hyperlipidemia Mother Althea Joy Alive Mother: [place] and well Paternal Grandfather Gudelia coburn uncle: Alcoholism Paternal Grandmother Patersyed l grandmother: Thyroid disease Sister Alive Sister: [...] 66 06/09/2024 2:50 PM EST Temperature 36.2 C (97.1 F) 06/04/2023 3:48 PM EST Respiratory Rate - - Oxygen Saturation - - Inhaled Oxygen Concentration - - Weight 75.1 kg (165 lb 9.6 oz) 06/09/2024 2:50 P M EST Height 175.3 cm (5' 9 ) 06/09/2024 2:50 PM EST Body Mass Index 24.45 06/09/2024 2:50 PM EST Plan of Treatment Health Maintenance Due Date Last Done Comments COVID-19 Vaccine (3 2023-2 5 season) 2024 2021, 01/09/2021 DTaP,Tdap,and Td [...] Completed 06/04/2023, 05/22/2022 Influenza Vaccines Completed 06/09/2024, 1 08/04/2022, 05/22/2022, Additional history exists Procedures * Due to [place] SeeControl law, this organization might not be sharing sensitive test results. Procedure Name Priority Date/Time Associated Diagnosis Comments AMB REFERRAL TO ORTHOPEDIC SURGERY Routine 10/18/2024 1:37 PM EDT Closed torus fracture of distal end of right radius, initial encounter from Last 3 Months Results * Due to [place] SeeControl law, this organization might not be sharing sensitive test results. * Ambulatory referral to Orthopedic Surgery (10/18/2024 1:37 PM EDT) Kyle Mena MD OUTPATIENT REFERRAL ORDERABLES F inal Result from Last 3 Months Insurance [facility] [employer] Care Teams Pc Technician Relationship Specialty Start Date End Date Eagle Méndez MD [address] [place] [address] [place] [address] PCP - General Pediatrics 11/30/20
--- OUTSIDE RECORDS SUMMARY | 2025-01-17 16:05 | XMS_ITS | Patient Health Record ---
Author Organization [facility] Address [address] [place] [address] Care Team Providers Care Clinical Dietician Name Role Phone Austin OLIVIER, Steffany Primary Care Provider Unavailab Keo Isebll Unavailable [phone] Reason For Referral No Information Social History Tobacco Use: Social History Observation Description Date Details (start date - stop date) Never Smoker NA - NA Tobacco Use/Smoking Question Answer Notes Are you a: nonsmoker Additional Findings: Tobacco Non-User Current no n-smoker Alcohol Screen Question Answer Notes Did you have a drink containing alcohol in the p ast year? No Points 0 Interpretation Negative Problems Problem Type SNOMED Code ICD Code Onset Dates Problem Status W/U Status Risk Notes Problem Tinea unguium (775165730) Tinea unguium (B35.1) Active confirmed Plan Of Treatment No Information
== END 2025-01-17 15:34 | disposition home or self-care (01) ==
LOC: HO.HOS 15:16
DX: M65.4 Radial styloid tenosynovitis [de Quervain] (principal)
CPT/HCPCS: 99024

== ENCOUNTER 2025-02-28 09:49 | Outpatient (AMB) | payer OTHER, SELFPAY ==
--- NOTE | 2025-02-28 09:58 | MHC.OFFVIS ---
Vital Signs 02/28/25 09:59 Height 5 ft 9 in Weight 165 lb BMI 24.4 Intake Visit Reasons: PO-Rt 1st DC Release 01/02/25 Intake Note: Mulugeta is a 20 year old right hand dominant man who presents today post-operatively status post right 1st dorsal compartment release and tenosynovectomy of the right abductor pollicis longus and extensor pollicis brevis tendons, DOS: 01/02/25, by Dr. Glynn. At his last post-operative visit a referral to occupational therapy was placed for range of motion and strengthening. Patient was educated that he should continue wearing his comfort cool thumb spica splint when his wrist is bothering him or when he is going to be participating in significant activity. Today, patient reports he continues experiencing pain along the incision. Denies numbness, tingling, finger locking. Patient states he only went to OT once due to his work hours. He is no longer wearing the comfort cool brace or taking pain medications. Allergies No Known Allergies Allergy (Verified 02/28/25 10:01) HPI HPI PO-Rt 1st DC Release 01/02/25: Details: Mulugeta is a 20 year old right hand dominant man who presents today post-operatively status post right 1st dorsal compartment release and tenosynovectomy of the right abductor pollicis longus and extensor pollicis brevis tendons, DOS: 01/02/25, by Dr. Glynn. At his last post-operative visit a referral to occupational therapy was placed for range of motion and strengthening. Patient was educated that he should continue wearing his comfort cool thumb spica splint when his wrist is bothering him or when he is going to be participating in significant activity. Today, patient reports he continues experiencing pain along the incision. Denies numbness, tingling, finger locking. Patient states he only went to OT once due to his work hours. He is no longer wearing the comfort cool brace or taking pain medications. [facility] Medical History Patient denies significant medical history Surgical History History of surgery on arm Social History Are you a primary cattle care worker to a significant other at home: No Do you presently have visiting nurse or other home services: No Alcohol intake: never Comment: counts correct Patient Tobacco Use Status: Never used Tobacco Current occupation: rt hand/ [employer] Review of Systems Const All systems reviewed & are unremarkable except as noted in HPI and below Physical Exam Vital Signs: BMI result Body Mass Index 24.4 Extrem Other: The patient was alert oriented and in no acute distress Sensation is grossly intact to all digits and cap refill is brisk Well approximated and well healing incision site noted over the 1st dorsal compartment of the right wrist No tenderness about the incision site No erythema no overlying skin changes Negative Aisha on the right No tenderness to palpation of right radial styloid He can make a fist and extend all of his digits Assessment & Plan Assessment & Plan (1) De Quervain's tenosynovitis, right: Code(s): M65.4 - Radial styloid tenosynovitis [de Quervain] Category: Medical Plan 1. Status post 1st dorsal compartment release DOS 01/02/2025 Patient appears to be recovering well postoperatively Patient is educated about the typical recovery course Continue OT, and continue to do exercises once discharged Patient is amenable to this plan Patient is educated that he should continue wearing his comfort cool thumb spica splint when his wrist is bothering him or when he is going to be participating in significant activity Patient is amenable to this plan Follow-up as needed with any acute concerns Coding Level of Care Code Global (63757) Diagnoses De Quervain's tenosynovitis, right M65.4
[2025-02-28 09:59] VITALS: BMI 24.4
--- OUTSIDE RECORDS SUMMARY | 2025-02-28 10:34 | XMS_ITS | Clinical Summary ---
Author Organization [facility] Address [address] [place] [phone] Phone Care Team Providers Care Professor Of Surgery Name Role Phone Unavailable Primary Care Provider Unavailabl e Allergies No known active allergies Medications FLUoxetine 10 MG capsule Take by mouth once daily. 04/14/2024 Active triamcinolone 0.1 % creamIndications :Dermatitis APPLY TO RASH TWICE A DAY NEEDED FOR UP TO 14 DAYS 30 g 1 01/10/2025 Active Active Problems Problem Noted Date Diagnosed [...] transferred to psychiatrist, Dr. Rolf Herrera in [place], as of 01/18/2021. Resolved Problems Problem Noted Date Diagnosed Date Resolved Date Acne vulgaris 09/08/2019 09/27/2020 History of ADHD 04/19/2015 09/08/2019 Encounters Date Type Department Care Team Description 02/27/2025 Telephone [facility] [address] [place] [address] Melissa William MD Medical Records 01/09/2025 Refill [facility] [address] [place] [address] Fish García MD Dermatitis from Last 3 [...] Grandmother Hyperlipidemia Maternal Grandmother Hyperlipidemia Mother Althea Vela Cancer (Childhood Onset) Paternal Grandmother Alcoholism Neg Hx Relation Name Status Comments Brother Alive Brother: Alive and well Father Mulugeta Vela Alive Father: A live and well Maternal Grandfather Materna l grandfather: Cancer -renal Maternal Grandmother Materna l grandmother: mitral and aortic stenosis for, Hyperlipidemia Mother Althae Vela Alive Mother: Ali ve and well Paternal [...] (3 2023-2 5 season) 2024 2021, 01/09/2021 Influenza Vaccines (#1) 2025 06/09/20 24, 06/04/2023, 05/22/2022, Additional history exists DTaP,Tdap,and Td Vaccines (7 - Td or [...]
--- OUTSIDE RECORDS SUMMARY | 2025-02-28 10:34 | XMS_ITS | Patient Health Record ---
Author Organization [facility] Address [address] [facility] [place] [address] Care Team Providers Care Gasoline Dragline Operator Name Role Phone Austin OLIVIER, Steffany Primary Care Provider Unavailab Keo Isbell Unavailable [phone] Reason For Referral No Information Social History [...] W/U Status Risk Notes Problem Tinea unguium ([id number]) Tinea unguium (B35.1) Active confirmed Plan Of Treatment No Information
== END 2025-02-28 10:06 | disposition home or self-care (01) ==
LOC: HO.HOS 09:49
DX: M65.4 Radial styloid tenosynovitis [de Quervain] (principal)
CPT/HCPCS: 99024

== ENCOUNTER 2025-03-15 15:30 | Outpatient (AMB) | payer OTHER, SELFPAY ==
--- NOTE | 2025-03-15 15:45 | MHC.PC.OV ---
Vital Signs 03/15/25 15:48 Height 5 ft 9 in Weight 160 lb 4 oz BMI 23.7 BP 100/60 Blood Pressure Location Lt brachial Position Sitting Respiration 18 Pulse 58 Pulse Source Pulse Oximeter Temp 97.3 F Temp Source Temporal Artery Scan Pulse Oximetry (%) 96 Oxygen Delivery Method Room Air Intake Visit Reasons: establish care Rn Shift Mgr Required: No Allergies No Known Allergies Allergy (Verified 03/15/25 15:58) Medication List - Last Reconciled 03/15/25 by JASON Dsouza fluoxetine 20 mg PO DAILY Tobacco use date assessed: 03/15/25 Dental Screening Dental Screen Date: 03/15/25 Did you have a dental visit in the last 12 months?: Yes Did you have a dental problem in the last 6 months where you did not have access to dental care?: No Was dental information given to patient?: Patient has dentist HPI establish care HPI Details Presenting to establish care Previous PCP: [facility] Last visit:May PE:same Specialist: orthopedics, Dr. Herrera once every four months OBGYN:n/a Past medical history:De Quervain's Tenosynovitis, right, Anxiety, Rash to bilateral arms Medications: Fluoxetine 20 mg daily Family HX:n/a Problem: The patient is a 20-year-old male presenting with a wellness check-up and management of anxiety. He reports being prescribed fluoxetine by Dr. Herrera, a psychologist, for anxiety management, with visits occurring every four months. The patient underwent tendon release surgery on his hand, performed at the current facility. Post-surgical pain is present but manageable, with no significant complications reported. The patient reports a rash on his arms, for which he applies triamcinolone cream as needed. The rash is not currently itchy but becomes so if the cream is not applied regularly. There is a family history of gluten sensitivity, raising concerns about potential gluten-related issues, although no gastrointestinal symptoms are present. [facility] Medical History Anxiety De Quervain's tenosynovitis, right Patient denies significant medical history Surgical History History of surgery on arm Social History Household Members: Family Housing: House Are you a primary skin care instructor to a significant other at home: No Do you presently have visiting nurse or other home services: No Alcohol intake: never Comment: counts correct Patient Tobacco Use Status: Never used Tobacco e-Cigarette/Vaping Use: Never Used service: No Current occupational status: employed Current occupation: [employer] Current occupational exposures/hazards: No Cognitive needs: No Hearing needs: No Vision needs: No Questionnaire PHQ-9 Over the last 2 weeks, how often have you been bothered by any of the following problems? 1. Little interest or pleasure in doing things: not at all 2. Feeling down, depressed, or hopeless: not at all 3. Trouble falling or staying asleep, or sleeping too much: not at all 4. Feeling tired or having little energy: not at all 5. Poor appetite or overeating: not at all 6. Feeling bad about yourself - or that you are a failure or have let yourself or your family down: not at all 7. Trouble concentrating on things, such as reading the newspaper or watching television: not at all 8. Moving or speaking so slowly that other people could have noticed. Or the opposite - being so fidgety or restless that you have been moving around a lot more than usual: not at all 9. Thoughts that you would be better off or of hurting yourself in some way: not at all Total score: 0 Depression Screening Interpretation: Negative Depression Screening Done: Yes 32195 - PHQ-9 Billing: Yes Source: Developed by Drs. Sam Pfeiffer, Beatrice Kim, Bob Andre and colleagues, with an educational santosh from [employer]. Thrive Questionnaire Date Thrive assessed: 03/15/25 I am a: Patient What is your living situation today?: I have a steady place to live Within the past 12 months, did the food you bought not last and you didn't have the money to get more?: Never true Within the past 12 months, did you worry whether your food would run out before you got money to buy more?: Never true Do you have trouble paying for medicines?: No Do you have trouble getting transportation to medical appointments?: No Do you have trouble paying your heating and electricity bill?: No Do you have trouble taking care of your child, family member or friend?: No Do you have trouble with day-to-day activities such as bathing, preparing meals, shopping, managing finances, etc.?: No Are you currently unemployed and looking for a job?: No Are you interested in more education?: No Please select the resources that you would like help with: None Currently or been in a relationship where the following occur: No concerns reported THRIVE Score: 0 AUDIT C Alcohol Use Questionnaire (AUDIT-C) 1. How often do you have a drink containing alcohol?: Never Total Score: 0 JACKIE-7 AMB Questionnaire JACKIE-7 Date JACKIE - 7 assessed: 03/15/25 Feeling nervous, anxious, or on edge: 0 = Not at all Not being able to stop or control worryin = Not at all Worrying too much about different things: 0 = Not at all Trouble relaxin = Not at all Being so restless that it is hard to sit still: 0 = Not at all Becoming easily annoyed or irritable: 0 = Not at all Feeling afraid as if something awful might happen: 0 = Not at all Total JACKIE-7 score (0-4 normal; 5-9 mild; 10-14 moderate; 15-21 severe): 0 Source: Developed by Drs. Sam Pfeiffer, Beatrice Kim, Bob Andre and colleagues, with an educational santosh from [employer]. JACKIE-7 Assessment Billing AJCKIE-7 Assessment Tool: JACKIE-7 Assessment 38838 Review of Systems Const Denies headache(s) Eyes Denies loss of vision ENT Denies vertigo, Denies dizziness, Denies headache(s) and Denies sore throat Card Denies chest pain, Denies leg edema and Denies lightheadedness Resp Denies cough, Denies hemoptysis and Denies wheezing GI Denies abdominal pain, Denies melena, Denies constipation, Denies diarrhea and Denies vomiting Denies dysuria, Denies urinary frequency and Denies urinary urgency Musc Denies arthralgias, Denies joint swelling, Denies numbness and Denies tingling Neuro Denies Abnormal speech present, Denies behavioral changes, Denies vertigo, Denies dizziness, Denies headache(s), Denies loss of vision, Denies memory loss, Denies numbness and Denies tingling Psych Denies anxiety, Denies behavioral changes, Denies depression, Denies memory loss and Denies panic attacks Yousuf/Lymph Denies easy bleeding and Denies easy bruising Aller/Immun Denies wheezing Physical exam (Primary Care) Vital Signs: Last Vital Signs Temp 97.3 F 03/15/25 15:48 Pulse 58 03/15/25 15:48 Resp 18 03/15/25 15:48 BP 100/60 03/15/25 15:48 Pulse Ox 96 03/15/25 15:48 Oxygen Delivery Method Room Air 03/15/25 15:48 BMI result Body Mass Index 23.7 Tobacco/Smoking Status: Tobacco use Status Tobacco use date assessed 03/15/25 03/15/25 15:56 Patient Tobacco Use Status Never used Tobacco 03/15/25 15:54 e-Cigarette/Vaping Use Never Used 03/15/25 15:56 PHQ-9: PHQ-9 Score PHQ-9: Total score 0 03/15/25 16:03 Depression Screening Interpretation: Negative Thrive Assessment: Date of Thrive Assessment Date Thrive assessed 03/15/25 03/15/25 15:56 Currently or been in a relationship where the following occur: No concerns reported Const General: healthy appearing, no acute distress, alert and awake Nutritional Appearance: well nourished Orientation/consciousness: oriented to person, oriented to place and oriented to time HENMT Ears: TM's normal bilaterally General nose exam: Normal nasal mucous membranes and turbinates present Eyes Conjunctivae: conjunctivae normal Sclerae: sclerae normal Pupils: Equal, round and reactive pupils present Neck Neck: Yes no lymphadenopathy and Yes no JVD Thyroid: Thyroid normal Carotids: no bruits Resp Effort & Inspection: normal respiratory effort and not tachypneic Auscultation: no crackles, no rales, no rhonchi and no wheezes Cardio Rate: regular rate Rhythm: regular rhythm Heart sounds: no murmurs and normal S1 and S2 GI Palpation (GI): Soft to palpation, nontender, no hepatomegaly and no splenomegaly Auscultation: normal bowel sounds Skin General skin exam: no rashes or lesions noted and dry skin Neuro General: oriented to person, oriented to place and oriented to time Cranial nerves: Yes Equal, round and reactive pupils present Speech: No Abnormal speech present Gait exam (Neuro): Normal gait present Motor exam (neuro): no tremor noted Deep tendon reflexes (DTR's): Right triceps reflex intensity grade: 2+, Left triceps reflex intensity grade: 2+, Rt Biceps (C5, C6): 2+, Left biceps reflex intensity grade: 2+, Right brachioradialis reflex intensity grade: 2+, Left brachioradialis reflex intensity grade: 2+, Right patellar reflex intensity grade: 2+ and Left patellar reflex intensity grade: 2+ Extrem Right upper extremity: full ROM Left upper extremity: full ROM Right lower extremity: full ROM; no edema Left lower extremity: full ROM; no edema Psych Mental Status: mental status grossly normal Speech and movement: Normal speech and movement present Affect: normal affect Attitude: cooperative Thought process: Normal thought process present Coding Level of Care Code New Pt Prev Care 18-39yr(35444 Diagnoses Encounter to establish care with new provider Z76.89 Anxiety F41.9 De Quervain's tenosynovitis, right M65.4 Rash and other nonspecific skin eruption R21 Additional Codes PHQ-9 - 68483 - PHQ-9 Billing: Yes ([id number]) JACKIE-7 Assessment Billing - JACKIE-7 Assessment Tool: JACKIE-7 Assessment 34020 ([id number]) Time Spent (min) 33 Assessment & Plan Assessment & Plan (1) Encounter to establish care with new provider: Code(s): Z76.89 - Persons encountering health services in other specified circumstances Category: Medical Plan: Patient is a 20-year-old male presenting to establish care. We will order labs and advise (2) Anxiety: Code(s): F41.9 - Anxiety disorder, unspecified Category: Medical Plan: Encouraged CBT Continue fluoxetine 20 mg daily Follow up with Psychiatry as scheduled (3) De Quervain's tenosynovitis, right: Code(s): M65.4 - Radial styloid tenosynovitis [de Quervain] Category: Medical Plan: The patient reports manageable post-surgical pain following tendon release surgery on the hand. No additional interventions were deemed necessary at this time. (4) Rash and other nonspecific skin eruption: Code(s): R21 - Rash and other nonspecific skin eruption Category: Medical Plan: The patient applies triamcinolone cream to manage the rash on his arms, which is effective in preventing itchiness. A potential gluten sensitivity was discussed, but no gastrointestinal symptoms are present to warrant further testing at this time. Orders: Orders Complete Blood Count Auto Diff 03/15/25 Z00.00 - Encounter for general adult medical examination without abnormal findings UA CC w/rflx Micro + Cult 03/15/25 Z00. - Encounter for general adult medical examination without abnormal findings TSH reflex Free T4 03/15/25 Z00. - Encounter for general adult medical examination without abnormal findings Vitamin D 25-OH Total 03/15/25 Z00.00 - Encounter for general adult medical examination without abnormal findings Lipid Panel 03/15/25 Z00.00 - Encounter for general adult medical examination without abnormal findings Comprehensive [place]. Panel Fast 03/15/25 Z00. - Encounter for general adult medical examination without abnormal findings Medications: New triamcinolone acetonide 0.1% 1 appl topical BID 80 grams 1RF rash to upper arms
[2025-03-15 15:48] VITALS: BP 100/60; PULSE 58; RESP 18; TEMP 36.3; O2SAT 96; BMI 23.7
--- OUTSIDE RECORDS SUMMARY | 2025-03-15 16:44 | XMS_ITS | Encounter Summary ---
Author Organization [facility] Address [address] [place] [address] Phone Care Team Providers Care Spa Host Name Role Phone Eagle Méndez MD Primary Care Provider [phone] Encounter Details Date Type Department Care Team (Late st Contact Info) Description 12/04/2016 Documentation [facility] [place] [facility] [address] [place] [address] Family Medicine, Physician [address] [place], [place] [address] Social History Tobacco Use Types Packs/Day Years [...] on filedocumented in this encounter Care Teams Spa Host Relationship Specialty Start Date End Date Eagle Méndez MD [address] [place] [address] [place] [address] PCP - General Pediatrics 11/30/20 02/01/25 documented as of this encounter
--- OUTSIDE RECORDS SUMMARY | 2025-03-15 16:44 | XMS_ITS | Encounter Summary ---
Author Organization [facility] Address [address] [place] [address] Phone Care Team Providers Care Clinical Psychologist Name Role Phone Eagle Méndez MD Primary Care Provider [phone] Reason for Visit * Reason Comments Med Refill Encounter Details Date Type Department Care Team (Late st Contact Info) Description 01/05/2020 Refill [facility] [place] [address] [place] [address] Kyle Ocampo MD [address] [place] [address] Anxiety Social History Tobacco Use Types Packs/Day [...] unspecified documented in this encounter Care Teams Clinical Psychologist Relationship Specialty Start Date End Date Eagle Méndez MD [address] [place] [address] [place] [address] PCP - General Pediatrics 11/30/20 02/01/25 documented as of this encounter
--- OUTSIDE RECORDS SUMMARY | 2025-03-15 16:44 | XMS_ITS | Encounter Summary ---
Author Organization [facility] Address [address] [place] [address] Phone Care Team Providers Care Rfid Developer Name Role Phone Eagle Méndez MD Primary Care Provider [phone] Reason for Visit * Reason Comments Med Refill Encounter Details Date Type Department Care Team (Late st Contact Info) Description 03/01/2019 Refill [facility] - [address] [address] Kyle Mena MD Other acne Social History [...] acne documented in this encounter Care Teams Rfid Developer Relationship Specialty Start Date End Date Eagle Méndez MD [address] [facility] [place] [address] PCP - General Pediatrics 11/30/20 02/01/25 documented as of this encounter
--- OUTSIDE RECORDS SUMMARY | 2025-03-15 16:44 | XMS_ITS | Patient Health Record ---
Author Organization [facility] Address [address] [facility] [place] [address] Care Team Providers Care Hospice Manager Name Role Phone Austin OLIVIER, Steffany Primary Care Provider Unavailab Keo Isbell Unavailable [phone] Reason For Referral No Information Social History [...] W/U Status Risk Notes Problem Tinea unguium (B35.1) Active confirmed Plan Of Treatment No Information
--- OUTSIDE RECORDS SUMMARY | 2025-03-15 16:44 | XMS_ITS | Encounter Summary ---
Author Organization [facility] Address [address] [place] [address] Phone Care Team Providers Care Orthopaedic General Name Role Phone Eagle Méndez MD Primary Care Provider Reason for Visit * Reason Comments Med Refill Encounter Details Date Type Department Care Team (Late st Contact Info) Description 11/28/2018 Refill [facility] - [address] [address] Kyle Mena MD Other acne Social History [...] acne documented in this encounter Care Teams Orthopaedic General Relationship Specialty Start Date End Date Eagle Méndez MD [address] [place] [address] [place] [address] PCP - General Pediatrics 11/30/20 02/01/25 documented as of this encounter
--- OUTSIDE RECORDS SUMMARY | 2025-03-15 16:44 | XMS_ITS | Encounter Summary ---
Author Organization [facility] Address [address] [place], [place] [phone] Phone Care Team Providers Care Alarm Security Or Surveillance Monitor Name Role Phone Eagle Méndez MD Primary Care Provider [phone] Encounter Details Date Type Department Care Team (Late st Contact Info) Description 03/05/2017 Conversion Encounter [facility] [place] [address] [place] [address] Social History Tobacco Use Types Packs/Day Years [...] on filedocumented in this encounter Care Teams Alarm Security Or Surveillance Monitor Relationship Specialty Start Date End Date Egale Méndez MD [address] [place] [address] PCP - General Pediatrics 11/30/20 02/01/25 documented as of this encounter
--- OUTSIDE RECORDS SUMMARY | 2025-03-15 16:44 | XMS_ITS | Clinical Summary ---
Author Organization [facility] Address [address] [place] [address] Phone Care Team Providers Care Formulation Chemist Name Role Phone Unavailable Primary Care Provider [...] transferred to psychiatrist, Dr. Rolf Herrera in [place], as of 01/18/2021. Resolved Problems Problem Noted Date Diagnosed Date Resolved Date Acne vulgaris 09/08/2019 09/27/2020 History of ADHD 04/19/2015 09/08/2019 Encounters Date Type Department Care Team Description 02/27/2025 Telephone [facility] [address] [place] [address] Melissa William MD Medical Records 01/09/2025 Refill [facility] [address] [place] [address] Fish García MD Dermatitis from Last 3 [...] and aortic stenosis for, Hyperlipidemia Mother Althea Vela Alive Mother: Ali ve and well [...]
--- OUTSIDE RECORDS SUMMARY | 2025-03-15 16:44 | XMS_ITS | Encounter Summary ---
Author Organization [facility] Address [address] [place] [address] Phone Care Team Providers Care Lime Sludge Kiln Operator Name Role Phone Eagle Méndez MD Primary Care Provider [phone] Reason for Visit * Reason Comments Med Refill Encounter Details Date Type Department Care Team (Late st Contact Info) Description 11/16/[address] [address] Kyle Pickard MD Anxiety Social History Tobacco Use Types Packs/Day [...] unspecified documented in this encounter Care Teams Lime Sludge Kiln Operator Relationship Specialty Start Date End Date Eagle Méndez MD [address] [place] [address] [place] [address] PCP - General Pediatrics 11/30/20 02/01/25 documented as of this encounter
--- OUTSIDE RECORDS SUMMARY | 2025-03-15 16:44 | XMS_ITS | Encounter Summary ---
Author Organization [facility] Address [address] [place] [address] Phone Care Team Providers Care Pilot Plant Operator Name Role Phone Eagle Méndez MD Primary Care Provider [phone] Encounter Details Date Type Department Care Team (Late st Contact Info) Description 01/04/2013 Documentation [facility] [place] [address] [place] [address] Family Medicine, Physician [address] [place], [place] [address] Social History Tobacco Use Types Packs/Day Years [...] on filedocumented in this encounter Care Teams Pilot Plant Operator Relationship Specialty Start Date End Date Eagle Méndez MD [address] [place], [place] [address] PCP - General Pediatrics 11/30/20 02/01/25 documented as of this encounter
--- OUTSIDE RECORDS SUMMARY | 2025-03-15 16:44 | XMS_ITS | Encounter Summary ---
Author Organization [facility] Address [address] [place] [address] Phone Care Team Providers Care Edm Operator Name Role Phone Eagle Méndez MD Primary Care Provider [phone] Encounter Details Date Type Department Care Team (Late st Contact Info) Description 12/07/2009 Documentation [facility] [place] Medicine [address] [place] [address] Family Medicine, Physician [address] [place], [place] [id number] Social History Tobacco Use Types Packs/Day Years [...] on filedocumented in this encounter Care Teams Edm Operator Relationship Specialty Start Date End Date Eagle Méndez MD [address] [place], [place] [address]ANG[place] [address] PCP - General Pediatrics 11/30/20 02/01/25 documented as of this encounter
--- OUTSIDE RECORDS SUMMARY | 2025-03-15 16:44 | XMS_ITS | Encounter Summary ---
Author Organization [facility] Address [address] [place] [address] Phone Care Team Providers Care Hospice Massage Therapist Name Role Phone Eagle Méndez MD Primary Care Provider [phone] Encounter Details Date Type Department Care Team (Late st Contact Info) Description 12/30/2016 Documentation [facility] [place] [address] [place] [address] Family Medicine, Physician [address] [place], [place] [address] Social History Tobacco Use Types Packs/Day Years [...] on filedocumented in this encounter Care Teams Hospice Massage Therapist Relationship Specialty Start Date End Date Eagle Méndez MD [address] [place] [address] [place] [address] PCP - General Pediatrics 11/30/20 02/01/25 documented as of this encounter
--- OUTSIDE RECORDS SUMMARY | 2025-03-15 16:44 | XMS_ITS | Encounter Summary ---
Author Organization [facility] Address [address] [place] [address] Phone Care Team Providers Care Final Inspector Movement Assembly Name Role Phone Eagle Méndez MD Primary Care Provider [phone] Encounter Details Date Type Department Care Team (Late st Contact Info) Description 02/04/2016 Documentation [facility] [place] [address] [place] [address] Family Medicine, Physician [address] [place], [place] [address] Social History Tobacco Use Types Packs/Day Years [...] on filedocumented in this encounter Care Teams Final Inspector Movement Assembly Relationship Specialty Start Date End Date Eagle Méndez MD [address] [place], [place] [address] [address] PCP - General Pediatrics 11/30/20 02/01/25 documented as of this encounter
== END 2025-03-15 16:17 | disposition home or self-care (01) ==
DX: Z00.00 Encounter for general adult medical examination without abnormal findings (principal); F41.9 Anxiety disorder, unspecified; M65.4 Radial styloid tenosynovitis [de Quervain]; R21 Rash and other nonspecific skin eruption

== ENCOUNTER → 2025-03-15 15:30 | Outpatient (BNVA) | payer OTHER, SELFPAY | DX: R21 Rash and other nonspecific skin eruption (principal); F41.9 Anxiety disorder, unspecified; M65.4 Radial styloid tenosynovitis [de Quervain]; Z76.89 Persons encountering health services in other specified circumstances | CPT/HCPCS: 96127 ==

== ENCOUNTER 2025-03-29 07:39 | Outpatient (RCR) | payer OTHER, SELFPAY ==
--- NOTE | 2025-02-15 08:23 | MHC.OT.EP ---
[address] [phone] Occupational Therapy Plan of Care Patient Name: Mulugeta Vela Date of Evaluation: 02/15/25 Diagnosis: s/p right first dorsal compartment release Pain Location: Pain in right radial wrist Current: 2/10 Worst: 7/10 Pain Score: 2 Pain Scale Used: Numeric (0 - 10) Aggravating Factors: Forceful grasp, lifting, thumb flexion Alleviating Factors: Rest, thumb splint (reportedly has not worn since first week of surgery) Assessment: Pt is a 20 y/o right hand dominant male referred to OT s/p right first dorsal compartment release on 01/[address] Glynn. Pt was unresponsive to conservative management including 2 cortisone injections. Pt reports continued right radial wrist pain and stiffness since the surgery which is improving. Gross grasp is 75# on the R compared to 90# on the left. Pt would benefit from short term skilled OT tx for improved ROM, scar management, and strengthening. Frequency and Duration: The patient will be seen 1x/wk for 4 weeks Short Term Goals: Pain free right wrist with ADLs/IADL's Improve R gross grasp by 10# Improve right wrist extension to 60 degrees IND with scar massage and HEP Hydraulic Bull Riveter Operator Goals: Same as above Treatment Plan: Therapeutic Exercise Therapeutic Activity Patient Education Edema Control Ultrasound MHP Soft Tissue Mobilization Electronically Signed By: Lizbeth Morgan, MS OTR/L Please Sign and return to therapist. Thank you once again for your referral.
== END 2025-03-29 08:42 | disposition home or self-care (01) ==
LOC: HO.OTS 07:39
DX: M65.4 Radial styloid tenosynovitis [de Quervain] (principal)
CPT/HCPCS: 97035; 97110; 97140; 97165

== ENCOUNTER 2025-05-02 13:25 | Outpatient (AMB) | payer OTHER, SELFPAY ==
[2025-05-02 13:34] VITALS: BMI 23.6
--- NOTE | 2025-05-02 13:34 | MHC.OFFVIS ---
Vital Signs 05/02/25 13:34 Height 5 ft 9 in Weight 160 lb BMI 23.6 Intake Visit Reasons: O/V s/p right 1st DC Release 01/02/25. Intake Note: Mulugeta is a 19 year old right hand dominant man who presents today for status post right 1st dorsal compartment release and tenosynovectomy of the right abductor pollicis longus and extensor pollicis brevis tendons, DOS: 01/02/25, by Dr Yoselyn Glynn. At his last visit he was advise to work with O.T. Today states he is able to make a fist and move his wrist around better however he continues to have pain with thumb movement and when applying pressure to wrist. Allergies No Known Allergies Allergy (Verified 05/02/25 13:39) HPI HPI O/V s/p right 1st DC Release 01/02/25.: Details: Mulugeta is a 20 year old right hand dominant man who returns with complaints of right radial wrist pain. He is S/P Right 1st dorsal compartment release & Tenosynovectomy of the right APL & EPB tendons, DOS: 01/02/25. He says he continues to have pain with motion of his thumb, or when pressure is applied to his wrist. When asked, he says his pain is the same as prior to his surgery. He feels his recovery has plateaued since his surgery. He says he is pretty pain free while at rest, but worsens with carrying objects. He had difficulties with pain & hypersensitivity following his surgery, and improved this with OT hand therapy. 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 He is in school studying Criminal Justice. [facility] Medical History Anxiety De Quervain's tenosynovitis, right Patient denies significant medical history Surgical History History of surgery on arm Social History Household Members: Family Both parents involved: Yes Housing: House Are you a primary residential child care counselor to a significant other at home: No Do you presently have visiting nurse or other home services: No Alcohol intake: never Comment: counts correct Patient Tobacco Use Status: Never used Tobacco e-Cigarette/Vaping Use: Never Used service: No Current occupational status: employed Current occupation: [employer] Current occupational exposures/hazards: No Cognitive needs: No Hearing needs: No Vision needs: No Review of Systems Const All systems reviewed & are unremarkable except as noted in HPI and below Physical Exam Vital Signs: BMI result Body Mass Index 23.6 Const General: no acute distress and alert Orientation/consciousness: patient oriented x3 Neuro General: patient oriented x3 Extrem Other: Evaluation of Right Upper Extremity: The patient is alert, oriented, and in no acute distress Neuro: Median, Ulnar, Radial nerves motor and sensory intact and sensation is normal to the tips of all digits Vascular: Cap refill brisk ROM: He can make a fist and extend all his digits Full & symmetrical wrist ROM No swelling Skin is mobile Negative Aisha test on the left Tightness and discomfort across the 1st dorsal compartment on the right when performing a Aisha test. Psych Appearance: grossly normal Affect: normal affect Attitude: cooperative Office Procedures AMB Fracture Care Details: No fracture, injection Fracture Billing Code: Fracture Billing Code Assessment & Plan Assessment & Plan (1) De Quervain's tenosynovitis, right: Code(s): M65.4 - Radial styloid tenosynovitis [de Quervain] Category: Medical Plan Assessment and plan: 1. Right de Quervain tenosynovitis, S/P 1st dorsal compartment release, S/P Tenosynovectomy of the APL & EPB tendons DOS: 01/02/25 Patient continues to have persistent pain 4 months post-op, which he describes as the same as prior to surgery No new injuries I recommend a repeat injection today, and he is in agreement I discussed activity modification, they should limit or avoid any heavy or repetitive pinching or gripping activities He should work on ROM exercises, and avoid any gripping or strengthening activities Injection #1: The risks and benefits of a steroid injection including but not limited to risk of damage to blood vessels, nerves, tendons, infection, skin bleaching, failure to improve symptoms, increased pain, and possible need for further injections or other intervention were discussed with the patient and the patient wishes to proceed with the steroid injection. Once consent was obtained, I sterilely prepped the area over the 1st dorsal compartment of the Right thumb. I then injected the 1st dorsal compartment with a combination of 1 mL of dexamethasone (4mg/ml), and 1% lidocaine. The patient tolerated the procedure well with no complications and good resolution of their symptoms prior to leaving clinic. If the patient continues to have pain 6-8 weeks following this injection, they may call to schedule appointment to discuss alternative treatment options He will follow up prn Scribed for Yoselyn Glynn MD by Santiago Gutierrez, medical laboratory assistant, on 05/02/25 at 2:15 PM, EST. Coding Level of Care Code Est Pt Level 3 (74452) Diagnoses De Quervain's tenosynovitis, right M65.4 CPT Codes Fracture Care - Fracture Billing Code: Fracture Billing Code ([id number])
--- OUTSIDE RECORDS SUMMARY | 2025-05-02 16:17 | XMS_ITS | Encounter Summary ---
Author Organization [facility] Address [address] [place] [address] Phone Care Team Providers Care Long Term Name Role Phone Eagle Méndez MD Primary Care Provider [phone] Encounter Details Date Type Department Care Team (Late st Contact Info) Description 12/04/2016 Documentation [facility] [place] [address] [place] [address] Family Medicine, Physician [address] [place], [place] [address] Social History Tobacco Use Types Packs/Day Years [...] on filedocumented in this encounter Care Teams Long Term Relationship Specialty Start Date End Date aEgle Méndez MD [address] [place] [address] [place] [address] PCP - General Pediatrics 11/30/20 02/01/25 documented as of this encounter
--- OUTSIDE RECORDS SUMMARY | 2025-05-02 16:17 | XMS_ITS | Encounter Summary ---
Author Organization [facility] Address [address] [place] [address] Phone Care Team Providers Care Bung Driver Name Role Phone Eagle Méndez MD Primary Care Provider Reason for Visit * Reason Comments Med Refill Encounter Details Date Type Department Care Team (Late st Contact Info) Description 01/05/2020 Refill [facility] [place] [address] [place] [address] Kyle Ocampo MD [address] [place] [address] Anxiety Social History Tobacco Use Types Packs/Day [...] unspecified documented in this encounter Care Teams Bung Driver Relationship Specialty Start Date End Date Eagle Méndez MD [address] [place] [address] [place]ann [address] PCP - General Pediatrics 11/30/20 02/01/25 documented as of this encounter
--- OUTSIDE RECORDS SUMMARY | 2025-05-02 16:17 | XMS_ITS | Encounter Summary ---
Author Organization [facility] Address [address] [place] [address] Phone Care Team Providers Care Electric Utility Lineworker Name Role Phone Eagle Méndez MD Primary Care Provider [phone] Encounter Details Date Type Department Care Team (Late st Contact Info) Description 12/30/2016 Documentation [facility] [place] Family Medicine [address] [place] [address] Family Medicine, Physician [address] [place], [place] [phone] Social History Tobacco Use Types Packs/Day Years [...] on filedocumented in this encounter Care Teams Electric Utility Lineworker Relationship Specialty Start Date End Date Eagle Méndez MD [address] [place] [address] [place] [address] PCP - General Pediatrics 11/30/20 02/01/25 documented as of this encounter
--- OUTSIDE RECORDS SUMMARY | 2025-05-02 16:17 | XMS_ITS | Encounter Summary ---
Author Organization [facility] Address [address] [place] [address] Phone Care Team Providers Care As400 Programmer Name Role Phone Eagle Méndez MD Primary Care Provider [phone] Encounter Details Date Type Department Care Team (Late st Contact Info) Description 02/04/2016 Documentation [facility] [place] Family Medicine [address] [place] [address] Family Medicine, Physician [address] [place], [place] [address] Social History Tobacco Use Types Packs/Day Years [...] on filedocumented in this encounter Care Teams As400 Programmer Relationship Specialty Start Date End Date Eagle Méndez MD [address] [place], [place] [address]ANG[place]I [address] PCP - General Pediatrics 11/30/20 02/01/25 documented as of this encounter
--- OUTSIDE RECORDS SUMMARY | 2025-05-02 16:17 | XMS_ITS | Encounter Summary ---
Author Organization [facility] Address [address] [place], [place] [phone] Phone Care Team Providers Care Vinyl Hanger Name Role Phone Eagle Méndez MD Primary Care Provider [phone] Encounter Details Date Type Department Care Team (Late st Contact Info) Description 03/05/2017 Conversion Encounter [facility] [place] [address] [place] [address] Social History Tobacco Use Types Packs/Day Years [...] on filedocumented in this encounter Care Teams Vinyl Hanger Relationship Specialty Start Date End Date Eagle Méndez MD [address] [place] [address] PCP - General Pediatrics 11/30/20 02/01/25 documented as of this encounter
--- OUTSIDE RECORDS SUMMARY | 2025-05-02 16:17 | XMS_ITS | Encounter Summary ---
Author Organization [facility] Address [address] [place] [address] Phone Care Team Providers Care Cracking Unit Operator Name Role Phone Eagle Méndez MD Primary Care Provider [phone] Reason for Visit * Reason Comments Med Refill Encounter Details Date Type Department Care Team (Late st Contact Info) Description 03/01/2019 Refill [facility] - [address] [address] Kyle Mena MD Other acne Social History [...] acne documented in this encounter Care Teams Cracking Unit Operator Relationship Specialty Start Date End Date Eagle Méndez MD [address] [facility] [place] [address] PCP - General Pediatrics 11/30/20 02/01/25 documented as of this encounter
--- OUTSIDE RECORDS SUMMARY | 2025-05-02 16:17 | XMS_ITS | Encounter Summary ---
Author Organization [facility] Address [address] [place] [address] Phone Care Team Providers Care Forest Fire Warden Name Role Phone Eagle Méndez MD Primary Care Provider [phone] Encounter Details Date Type Department Care Team (Late st Contact Info) Description 01/04/2013 Documentation [facility] [place] [address] [place] [address] Family Medicine, Physician [address] [place], [place] [address] Social History Tobacco Use Types Packs/Day Years [...] on filedocumented in this encounter Care Teams Forest Fire Warden Relationship Specialty Start Date End Date Eagle Méndez MD [address] [place], [place] [address]ANG[place]I [address] PCP - General Pediatrics 11/30/20 02/01/25 documented as of this encounter
--- OUTSIDE RECORDS SUMMARY | 2025-05-02 16:17 | XMS_ITS | Encounter Summary ---
Author Organization [facility] Address [address] [place] [address] Phone Care Team Providers Care Lasting Machine Operator Name Role Phone Eagle Méndez MD Primary Care Provider [phone] Reason for Visit * Reason Comments Med Refill Encounter Details Date Type Department Care Team (Late st Contact Info) Description 11/16/[address] [address] Kyle Pickard MD Anxiety Social History Tobacco [...] unspecified documented in this encounter Care Teams Lasting Machine Operator Relationship Specialty Start Date End Date Eagle Méndez MD [address] [place] [address] [place] Vann [address] PCP - General Pediatrics 11/30/20 02/01/25 documented as of this encounter
--- OUTSIDE RECORDS SUMMARY | 2025-05-02 16:17 | XMS_ITS | Patient Health Record ---
Author Organization [facility] Address [address] [facility] [place] [address] Care Team Providers Care Oyster Tonger Name Role Phone Austin OLIVIER, Steffany Primary Care Provider Unavailab Keo Isbell Unavailable [phone] Reason For Referral No Information Social History [...] W/U Status Risk Notes Problem Tinea unguium ([id number]) Tinea unguium (B35.1) Active confirmed Plan Of Treatment No Information
--- OUTSIDE RECORDS SUMMARY | 2025-05-02 16:17 | XMS_ITS | Clinical Summary ---
Author Organization [facility] Address [address] [place] [address] Phone Care Team Providers Care Hospice Superintendent Name Role Phone Unavailable Primary Care Provider [...] transferred to psychiatrist, Dr. Rolf Herrera in [place], as of 01/18/2021. Resolved Problems Problem Noted Date Diagnosed Date Resolved Date Acne vulgaris 09/08/2019 09/27/2020 History of ADHD 04/19/2015 09/08/2019 Encounters Date Type Department Care Team Description 02/27/2025 Telephone [facility] - [address] [address] Melissa William MD Medical Records from Last 3 Months Immunizations Immunization Administration [...] Health Maintenance Due Date Last Done Comments Influenza Vaccines (#1) 2025 06/09/20 24, 06/04/2023, 05/22/2022, Additional history exists COVID-19 Vaccine (3 - 2024-2 6 season) 2025 2021, 01/09/2021 DTaP,Tdap,and Td Vaccines (7 - [...]
--- OUTSIDE RECORDS SUMMARY | 2025-05-02 16:17 | XMS_ITS | Encounter Summary ---
Author Organization [facility] Address [address] [place] [address] Phone Care Team Providers Care Bait Man Name Role Phone Eagle Méndez MD Primary Care Provider [phone] Encounter Details Date Type Department Care Team (Late st Contact Info) Description 12/07/2009 Documentation [facility] [place] Family Medicine [address] [place] [address] Family Medicine, Physician [address] [place], [place] [phone] Social History Tobacco Use Types Packs/Day Years [...] on filedocumented in this encounter Care Teams Bait Man Relationship Specialty Start Date End Date Eagle Méndez MD [address] [place], [place] [address]ANG[place]I [address] PCP - General Pediatrics 11/30/20 02/01/25 documented as of this encounter
--- OUTSIDE RECORDS SUMMARY | 2025-05-02 16:17 | XMS_ITS | Encounter Summary ---
Author Organization [facility] Address [address] [place] [address] Phone Care Team Providers Care Care Management Coordinator Name Role Phone Eagle Méndez MD Primary Care Provider [phone] Reason for Visit * Reason Comments Med Refill Encounter Details Date Type Department Care Team (Late st Contact Info) Description 11/28/2018 Refill [facility] - [address] [address] Kyle Mena MD Other acne Social History [...] acne documented in this encounter Care Teams Care Management Coordinator Relationship Specialty Start Date End Date Eagle Méndez MD [address] [place] [address] [place] Vann [address] PCP - General Pediatrics 11/30/20 02/01/25 documented as of this encounter
== END 2025-05-02 14:45 | disposition home or self-care (01) ==
LOC: HO.HOS 13:26
PROVIDERS: Visit Provider Orthopaedic Surgery
DX: M65.4 Radial styloid tenosynovitis [de Quervain] (principal)
CPT/HCPCS: 20550; 99213

== ENCOUNTER → 2025-05-02 13:25 | Outpatient (BNVA) | payer OTHER, SELFPAY | PROVIDERS: Visit Provider Orthopaedic Surgery | DX: M65.4 Radial styloid tenosynovitis [de Quervain] (principal) | CPT/HCPCS: 20550; J1100; J2003 ==